=== PATIENT | male | born 1945 | race Native Hawaiian/Other Pacific Islander ===

== ENCOUNTER 2019-09-15 10:08 | Day surgery (SDC) | payer OTHER ==
[~2019-09-15] VITALS: Ht 180.3 cm; Wt 86.2 kg
== END 2019-09-15 11:34 | disposition home or self-care (01) ==
LOC: OR 10:08
PROC: 3E0R33Z Introduction of Anti-inflammatory into Spinal Canal, Percutaneous Approach (ICD-10-PCS; principal; 2019-09-15)
PROC: B01BYZZ Fluoroscopy of Spinal Cord using Other Contrast (ICD-10-PCS; 2019-09-15)
DX: M50.121 Cervical disc disorder at C4-C5 level with radiculopathy (principal)
CPT/HCPCS: J1020

== ENCOUNTER 2020-01-26 09:27 | Day surgery (SDC) | payer OTHER ==
[~2020-01-26] VITALS: Ht 30.5 cm; Wt 0.5 kg
== END 2020-01-26 12:57 | disposition home or self-care (01) ==
LOC: OR 09:27
PROC: 3E0R33Z Introduction of Anti-inflammatory into Spinal Canal, Percutaneous Approach (ICD-10-PCS; principal; 2020-01-26)
PROC: B01BYZZ Fluoroscopy of Spinal Cord using Other Contrast (ICD-10-PCS; 2020-01-26)
DX: M50.121 Cervical disc disorder at C4-C5 level with radiculopathy (principal)
CPT/HCPCS: J1020; J1170; J1885